=== PATIENT | female | born 1970 | race Caucasian/White ===

== ENCOUNTER 2016-09-18 19:51 | Emergency (ER) | payer OTHER | END 2016-09-18 22:10 | disposition T | LOC: EDMED 19:51 | PROC: 2W3DX1Z Immobilization of Left Lower Arm using Splint (ICD-10-PCS; principal; 2016-09-18) | DX: S63.502A Unspecified sprain of left wrist, initial encounter (principal); E66.9 Obesity, unspecified; W22.8XXA Striking against or struck by other objects, initial encounter; Y92.69 Other specified industrial and construction area as the place of occurrence of the external cause; Y99.0 Civilian activity done for income or pay ==